=== PATIENT | male | born 1965 | race Caucasian/White ===

== ENCOUNTER 2025-04-29 18:30 | Emergency (ER) | payer OTHER, SELFPAY ==
[2025-04-29 18:50] VITALS: BP 147/91; PULSE 68; TEMP 36.6; O2SAT 99; BMI 284.6
--- NOTE | 2025-04-29 19:30 | XR_ITS ---
[facility] [place] [address] Patient Name: AMBER LUBIN MRN: [id number] date: 1965 Sex: M Assigned Patient Location: ED.MAIN Current Patient Location: ED.MAIN Accession/Order Number: [id number] Exam Date: 04/29/2025 20:07 Report Date: 04/29/2025 20:09 At the request of: LIUDMILA VARGAS Procedure: XR tibia fibula LT 2V 2 views left tibia and fibula plain film HISTORY: Left lower leg swelling COMPARISON: None ACUTE FINDINGS: None DEGENERATIVE CHANGE: Mild knee and moderate ankle degeneration. Chronic changes of the medial malleolus. SOFT TISSUE FINDINGS: Unremarkable JOINT EFFUSION: None POSTOP CHANGES: None BONE MINERALIZATION: Adequate XR/XR tibia fibula LT 2V IMPRESSION: Degenerative change. No acute findings Impression dictated by: Bryan Brambila M.D. 04/29/2025 8:09 PM Dictation Location: [facility] Electronically authenticated by: [id number] Y Date: 04/29/2025 20:09
--- NOTE | 2025-04-29 19:32 | ED_ITS ---
Documented by User: ALICIA BUSTOS II 04/30/25 12:58 HPI HPI - General Adult General Chief complaint: Extremity Problem, Nontraumatic Stated complaint: LEFT CALF VERY SWOLLEN WARM SORE Time Seen by Provider: 04/29/25 19:01 Source: patient Mode of arrival: walk-in Limitations: no limitations History of Present Illness HPI narrative: Patient has 2-day history of left leg redness and swelling medially. Patient denies any injury. Denies any fever, chills, nausea, vomiting, chest pain, shortness of breath. Denies any urinary bleeding, rectal bleeding, history of blood clot, history of DVT. Symptoms worse with touch or motion nothing improves symptoms. Onset (ago): day(s) (2 days) Location: Reports lower extremity Related Data Home Medications ?Medication ?Instructions ?Recorded ?Confirmed sertraline 20 mg/mL oral 20 mg PO DAILY 04/29/2504/08 concentrate (Zoloft) Allergies Allergy/AdvReac Type Severity Reaction Status Date / Time diclofenac (From Voltaren) Allergy Mild Hives Verified 04/29/25 18:49 Opioid HPI Opioid Management Most Recent Opioid Data: Last Pain Scale 4 04/29/25, 18:50 Review of Systems ROS Status of ROS 10 or more systems reviewed and unremark able except as noted in history and below Constitutional Denies: fever or chills Cardiovascular Reports: edema; Denies: chest pain Respiratory Denies: shortness of breath or cough Gastrointestinal Denies: abdominal pain, nausea or vomiting Genitourinary Denies: blood in urine Integumentary/Breast Reports: changes in skin color Psychiatric Denies: anxiety PFSH PFSH Social History Little interest or pleasure in doing things: not at all Feeling down, depressed, or hopeless: not at all Exam Constitutional Vital Signs, click to edit/add: Last Vital Signs Temp 97.9 F 04/29/25 18:50 Pulse 68 04/29/25 18:50 Resp 18 04/29/25 18:50 BP 147/91 H 04/29/25 18:50 Pulse Ox 99 04/29/25 18:50 O2 Del Method Room Air 04/29/25 18:50 Documenting provider has reviewed patient's vital signs: yes Common normals: no apparent distress and oriented x3 General appearance: cooperative and comfortable HENMT Common normals: normocephalic Eye Common normals: PERRL and EOMs intact bilaterally Neck & C-Spine Common normals: full ROM Chest Common normals: inspection of chest normal Respiratory Common normals: normal respiratory effort and clear to auscultation bilaterally Effort & inspection: able to speak in complete sentences Cardio Common normals: regular rate, regular rhythm, S1 normal heart sound and S2 normal heart sound GI Common normals: Normal to inspection, nondistended, normoactive bowel sounds present and non-tender Common normals: no CVA tenderness Back & Pelvis Common normals: no CVA tenderness and no thoracic nor lumbar tenderness Extremity Common normals: calf tenderness and pedal edema General: edema; no cyanosis and pulses normal Left lower extremity: lower leg (Erythema/tenderness. Patient has +1 edema noted.) Neuro Common normals: oriented x3 Course Vital Signs Vital signs: Vital Signs Temperature 97.9 F 04/29/25 18:50 Pulse Rate 68 04/29/25 18:50 Respiratory Rate 18 04/29/25 18:50 Blood Pressure 147/91 H 04/29/25 18:50 Pulse Oximetry 99 04/29/25 18:50 Oxygen Delivery Method Room Air 04/29/25 18:50 Temperature 97.9 F 04/29/25 18:50 Pulse Rate 68 04/29/25 18:50 Respiratory Rate 18 04/29/25 18:50 Blood Pressure 147/91 H 04/29/25 18:50 Pulse Oximetry 99 04/29/25 18:50 Oxygen Delivery Method Room Air 04/29/25 18:50 Medical Decision Making [facility] Narrative Medical decision making narrative: Patient has 2-day history of redness and swelling with tenderness overlying the lower leg. Patient denies any history of DVT PE, blood clotting denies any recent surgery denies any recent travel denies prednisone use. He does have elevated PSA. He also takes Imitrex. Will add CBC CMP lactic acid x-ray tib- fib as well as ultrasound venous lower extremities he has +1 anterior tibial and +2 posterior tibial left leg pulses . +1 and +1 right lower extremity. Awaiting radiology report for ultrasound discussed with Dr. Mendoza will sign outpatient to her for continued care and appropriate disposition per Differential Diagnosis Differential Diagnosis: dvt, cellulitis, phlebitis. Lab Data Lab results reviewed: Yes I reviewed the patient's lab results Labs: Lab Results 04/29/25 Range/Units 19:42 WBC 7.8 (4.0-11.0) 10^3/uL RBC 4.78 (4.70-6.10) 10^6/uL Hgb 15.5 (14.0-18.0) g/dL Hct 43.4 (42.0-54.0) % MCV 90.8 (80.0-94.0) fL MCH 32.4 (25.9-34.0) pg MCHC 35.7 H (29.9-35.2) g/dL RDW 12.8 (11.0-15.0) % Plt Count 174 (150-450) 10^3/uL MPV 11.4 (9.5-13.5) fL Neut % (Auto) 45.8 (43.0-75.0) % Lymph % (Auto) 38.0 (20.5-60.0) % [place] % (Auto) 12.2 H (1.7-12.0) % Eos % (Auto) 2.7 (0.9-7.0) % Baso % (Auto) 1.0 (0.2-2.0) % Neut # (Auto) 3.6 (1.4-6.5) 10^3/uL Lymph # (Auto) 3.0 (1.2-3.8) 10^3/uL [place] # (Auto) 1.0 H (0.3-0.8) 10^3/uL Eos # (Auto) 0.2 (0.0-0.7) 10^3/uL Baso # (Auto) 0.1 (0.0-0.1) 10^3/uL Abs Immat Gran (auto) 0.02 (0.00-0.03) 10^3/uL Imm/Tot Granulo (auto) 0.3 (0.0-0.5) % Sodium 140 (136-145) mmol/L Potassium 4.0 (3.5-5.1) mmol/L Chloride 102 (98-107) mmol/L Carbon Dioxide 29.1 (21.0-32.0) mmol/L Anion Gap 12.9 BUN 25.0 H (7.0-18.0) mg/dL Creatinine 0.97 (0.70-1.30) mg/dL Est GFR ( Amer) >60 (>=60 mL/min/1.73m^2) Est GFR (Non-Af Amer) >60 (>=60 mL/min/1.73m^2) BUN/Creatinine Ratio 25.8 Glucose 107 H (74-106) mg/dL Lactate 0.9 (0.4-2.0) mmol/L Calcium 9.1 (8.5-10.1) mg/dL Total Bilirubin 0.4 (0.2-1.0) mg/dL AST 29 (15-37) U/L ALT 51 (16-63) U/L Alkaline Phosphatase 72 (46-116) U/L Total Protein 6.8 (6.4-8.2) g/dL Albumin 4.0 (3.4-5.0) g/dL Globulin 2.8 g/dL Albumin/Globulin Ratio 1.4 Discharge Plan Discharge Chief Complaint: Extremity Problem, Nontraumatic Clinical Impression: Acute leg pain, Superficial thrombophlebitis of great saphenous vein Patient Disposition: Home, Self-Care Time of Disposition Decision: 22:47 Condition: Good Prescriptions / Home Meds: No Action sertraline [Zoloft] 20 mg/mL concentrate 20 mg PO DAILY Print Language: [place] Leonean Instructions: Superficial Thrombophlebitis (ED), Blood Thinners (ED) Referrals: Leila Edward NP [Primary Care Provider] - 1 week Discharge Date/Time: 04/29/25 23:05 Documented by User: Angela Mendoza MD 04/29/25 23:01 HPI HPI - General Adult General Chief complaint: Extremity Problem, Nontraumatic Stated complaint: LEFT CALF VERY SWOLLEN WARM SORE Time Seen by Provider: 04/29/25 19:01 Related Data Home Medications ?Medication ?Instructions ?Recorded ?Confirmed sertraline 20 mg/mL oral 20 mg PO DAILY 04/29/2504/08 concentrate (Zoloft) Allergies Allergy/AdvReac Type Severity Reaction Status Date / Time diclofenac (From Voltaren) Allergy Mild Hives Verified 04/29/25 18:49 Opioid HPI Opioid Management Most Recent Opioid Data: Last Pain Scale 4 04/29/25, 18:50 PFSH PFSH Social History Little interest or pleasure in doing things: not at all Feeling down, depressed, or hopeless: not at all Exam Constitutional Vital Signs, click to edit/add: Last Vital Signs Temp 97.9 F 04/29/25 18:50 Pulse 68 04/29/25 18:50 Resp 18 04/29/25 18:50 BP 147/91 H 04/29/25 18:50 Pulse Ox 99 04/29/25 18:50 O2 Del Method Room Air 04/29/25 18:50 Course Vital Signs Vital signs: Vital Signs Temperature 97.9 F 04/29/25 18:50 Pulse Rate 68 04/29/25 18:50 Respiratory Rate 18 04/29/25 18:50 Blood Pressure 147/91 H 04/29/25 18:50 Pulse Oximetry 99 04/29/25 18:50 Oxygen Delivery Method Room Air 04/29/25 18:50 Temperature 97.9 F 04/29/25 18:50 Pulse Rate 68 04/29/25 18:50 Respiratory Rate 18 04/29/25 18:50 Blood Pressure 147/91 H 04/29/25 18:50 Pulse Oximetry 99 04/29/25 18:50 Oxygen Delivery Method Room Air 04/29/25 18:50 Medical Decision Making [facility] Narrative Medical decision making narrative: Patient has 2-day history of redness and swelling with tenderness overlying the lower leg. Patient denies any history of DVT PE, blood clotting denies any recent surgery denies any recent travel denies prednisone use. He does have elevated PSA. He also takes Imitrex. Will add CBC CMP lactic acid x-ray tib- fib as well as ultrasound venous lower extremities he has +1 anterior tibial and +2 posterior tibial left leg pulses . +1 and +1 right lower extremity. Awaiting radiology report for ultrasound discussed with Dr. Mendoza will sign outpatient to her for continued care and appropriate disposition. This patient was seen and evaluated in conjunction with the physician front office assistant. Please refer to his H&P. In brief this patient presents for evaluation of tenderness and a red streak up the medial aspect of the left leg. His pulses are normal. He does not have any calf tenderness or swelling. He has not had any fever. His labs are normal. An ultrasound was ordered of the extremity that shows normal arterial duplex ultrasound of the left lower extremity with no peripheral arterial vascular disease. It was noted there is noncompressible greater saphenous vein segments in the distal left lower extremity consistent with superficial vein thrombosis. The patient had been medicated with a dose of Eliquis and Keflex as it took an extended period of time to get the ultrasound back. Before he did leave the premises I was able to discuss the results of the ultrasound with him. I explained to him that he does not need to take Eliquis but should continue to take the Keflex use warm compresses and take a daily aspirin. He will follow-up closely with his family physician. Lab Data Labs: Lab Results 04/29/25 Range/Units 19:42 WBC 7.8 (4.0-11.0) 10^3/uL RBC 4.78 (4.70-6.10) 10^6/uL Hgb 15.5 (14.0-18.0) g/dL Hct 43.4 (42.0-54.0) % MCV 90.8 (80.0-94.0) fL MCH 32.4 (25.9-34.0) pg MCHC 35.7 H (29.9-35.2) g/dL RDW 12.8 (11.0-15.0) % Plt Count 174 (150-450) 10^3/uL MPV 11.4 (9.5-13.5) fL Neut % (Auto) 45.8 (43.0-75.0) % Lymph % (Auto) 38.0 (20.5-60.0) % [place] % (Auto) 12.2 H (1.7-12.0) % Eos % (Auto) 2.7 (0.9-7.0) % Baso % (Auto) 1.0 (0.2-2.0) % Neut # (Auto) 3.6 (1.4-6.5) 10^3/uL Lymph # (Auto) 3.0 (1.2-3.8) 10^3/uL [place] # (Auto) 1.0 H (0.3-0.8) 10^3/uL Eos # (Auto) 0.2 (0.0-0.7) 10^3/uL Baso # (Auto) 0.1 (0.0-0.1) 10^3/uL Abs Immat Gran (auto) 0.02 (0.00-0.03) 10^3/uL Imm/Tot Granulo (auto) 0.3 (0.0-0.5) % Sodium 140 (136-145) mmol/L Potassium 4.0 (3.5-5.1) mmol/L Chloride 102 (98-107) mmol/L Carbon Dioxide 29.1 (21.0-32.0) mmol/L Anion Gap 12.9 BUN 25.0 H (7.0-18.0) mg/dL Creatinine 0.97 (0.70-1.30) mg/dL Est GFR ( Amer) >60 (>=60 mL/min/1.73m^2) Est GFR (Non-Af Amer) >60 (>=60 mL/min/1.73m^2) BUN/Creatinine Ratio 25.8 Glucose 107 H (74-106) mg/dL Lactate 0.9 (0.4-2.0) mmol/L Calcium 9.1 (8.5-10.1) mg/dL Total Bilirubin 0.4 (0.2-1.0) mg/dL AST 29 (15-37) U/L ALT 51 (16-63) U/L Alkaline Phosphatase 72 (46-116) U/L Total Protein 6.8 (6.4-8.2) g/dL Albumin 4.0 (3.4-5.0) g/dL Globulin 2.8 g/dL Albumin/Globulin Ratio 1.4 Discharge Plan Discharge Chief Complaint: Extremity Problem, Nontraumatic Clinical Impression: Acute leg pain, Superficial thrombophlebitis of great saphenous vein Patient Disposition: Home, Self-Care Time of Disposition Decision: 22:47 Condition: Good Prescriptions / Home Meds: No Action sertraline [Zoloft] 20 mg/mL concentrate 20 mg PO DAILY Print Language: [place]an Instructions: Superficial Thrombophlebitis (ED), Blood Thinners (ED) Referrals: Leila Edward NP [Primary Care Provider] - 1 week Discharge Date/Time: 04/29/25 23:05
[2025-04-29 19:47] LABS: Hematocrit 43.4 % (42.0-54.0); Hemoglobin 15.5 g/dL (14.0-18.0); Immature Granulocytes Abs Auto 0.02 10^3/uL (0.00-0.03); Immature Granulocytes Pct Auto 0.3 % (0.0-0.5); Lymphocytes Absolute Auto 3.0 10^3/uL (1.2-3.8); Mean Corpuscular HGB Conc 35.7 g/dL (29.9-35.2); Mean Corpuscular Hemoglobin 32.4 pg (25.9-34.0); Mean Corpuscular Volume 90.8 fL (80.0-94.0); Platelet Count 174 10^3/uL (150-450); Red Blood Count 4.78 10^6/uL (4.70-6.10); White Blood Count 7.8 10^3/uL (4.0-11.0)
[2025-04-29 20:06] LABS: Alanine Aminotransferase 51 U/L (16-63); Albumin Globulin Ratio 1.4; Albumin Level 4.0 g/dL (3.4-5.0); Alkaline Phosphatase 72 U/L (46-116); Anion Gap 12.9; Aspartate Amino Transferase 29 U/L (15-37); Blood Urea Nitrogen 25.0 mg/dL (7.0-18.0); Calcium 9.1 mg/dL (8.5-10.1); Carbon Dioxide 29.1 mmol/L (21.0-32.0); Chloride 102 mmol/L (98-107); Estimated GFR (African America >60 (>=60 mL/min/1.73m^2); Estimated GFR (Non-African Ame >60 (>=60 mL/min/1.73m^2); Globulin 2.8 g/dL; Glucose 107 mg/dL (74-106); Potassium 4.0 mmol/L (3.5-5.1); Sodium 140 mmol/L (136-145); Total Protein 6.8 g/dL (6.4-8.2)
[2025-04-29 20:09] LABS: Lactate/Lactic Acid 0.9 mmol/L (0.4-2.0)
[2025-04-29] MEDS: APIXABAN 5 MG TABLET 10 MG PO (22:51)
[2025-04-29] MEDS: CEPHALEXIN 500 MG CAPSULE PO (22:51)
== END 2025-04-29 23:05 | disposition home or self-care (01) ==
PROVIDERS: Physician Assistant; Emergency Provider Emergency Medicine; PCP Nurse Practitioner Family
DX: I80.02 Phlebitis and thrombophlebitis of superficial vessels of left lower extremity (principal); M79.605 Pain in left leg
CPT/HCPCS: 36415; 73590; 80053; 83605; 85025; 93926; 99285

== ENCOUNTER 2025-05-09 16:36 | Emergency (ER) | payer OTHER, SELFPAY ==
[2025-05-09 16:58] VITALS: BP 142/74; PULSE 69; TEMP 36.8; O2SAT 97; BMI 28.5
--- NOTE | 2025-05-09 17:18 | CT_ITS ---
[address] [address] Patient Name: AMBER LUBIN MRN: [id number] date: 1965 Sex: M Assigned Patient Location: ED.MAIN Current Patient Location: ED.MAIN Accession/Order Number: [id number] Exam Date: 05/09/2025 18:27 Report Date: 05/09/2025 18:32 At the request of: LIAM VARGAS Procedure: CT abdomen pelvis wo con CT abdomen pelvis wo con 05/09/2025 6:03 PM SIGNS AND SYMPTOMS: Left low back pain, left flank pain TECHNIQUE: Multidetector ct axial images of the abdomen and pelvis were obtained without IV contrast. Multiplanar reformats were performed and reviewed to further define anatomy and possible pathology. CT was performed with one or more of the following dose reduction techniques: Automated exposure control, adjustment of the mA and/or kV according to patient size, or use of iterative reconstruction technique. COMPARISON: None. FINDINGS: Lower Chest: Within normal limits. ABDOMEN: Liver: Within normal limits. Bile Ducts: Normal caliber. Gallbladder: No calcified gallstones. Normal caliber wall. Pancreas: Within normal limits. Spleen: Within normal limits. Adrenals: Within normal limits. Kidneys: There are nonobstructing renal stones on the right measuring up to 2 mm in greatest dimension. There is mild left-sided hydronephrosis with fat stranding along the left renal pelvis. Pelvis: Reproductive Organs: No pelvic masses. Ureters: There is a 4 mm stone in the left ureterovesical junction with left-sided hydroureter. Bladder: Within normal limits. Bowel: Normal caliber. There is a normal appendix in the right lower quadrant. Mesenteric Lymph Nodes: No enlarged mesenteric lymph nodes. Peritoneum: No ascites or free air, no fluid collection. Vessels: within normal limits Retroperitoneum: Within normal limits. Abdominal Wall: Within normal limits. Bones: Degenerative changes are noted in the lumbar spine. CT/CT abdomen pelvis wo con IMPRESSION: There is a 4 mm stone in the left ureterovesical junction with left-sided hydroureter. There is mild left hydronephrosis. Additional nonobstructing renal stones are noted on the right measuring up to 2 mm in greatest dimension. Impression dictated by: Conrad Matson M.D. 05/09/2025 6:32 PM Dictation Location: [place] [address] Electronically authenticated by: [id number] Y Date: 05/09/2025 18:32
--- NOTE | 2025-05-09 17:20 | ED.GENADUL1 ---
HPI HPI - General Adult General Chief complaint: Abdominal Pain Stated complaint: LOWER LEFT BACK PAIN Time Seen by Provider: 05/09/25 17:13 Source: patient Mode of arrival: walk-in Limitations: no limitations History of Present Illness HPI narrative: Patient is a 60-year-old male who presents to the emergency department for evaluation of left low back pain that began several hours ago while he was golfing. He denies any pain radiation to the abdomen. He states he had a kidney stone years ago and states this feels similar. He has not had any fevers or vomiting. He states he has the sensation that he needs to urinate but feels he can only pass a small amount of urine. No dysuria or hematuria. He did not require surgery for the previous kidney stone. Related Data Home Medications ?Medication ?Instructions ?Recorded ?Confirmed sertraline 20 mg/mL oral 20 mg PO DAILY 04/29/25 04/29/25 concentrate (Zoloft) cephalexin 500 mg capsule 500 mg PO Q8H 05/09/25 05/09/25 prednisone 20 mg tablet 40 mg PO QDAY 05/09/25 05/09/25 sumatriptan succinate 100 mg tablet 100 mg PO Q2H PRN migraine headache 05/09/25 05/09/25 Previous Rx's ?Medication ?Instructions ?Recorded ciprofloxacin HCl 500 mg tablet 500 mg PO BID 3 days #6 tabs 05/09/25 (Cipro) ondansetron 4 mg disintegrating 4 mg PO Q6H PRN nausea and 05/09/25 tablet vomiting #12 tabs oxycodone-acetaminophen 5 mg-325 1 tab PO Q6H PRN pain 3 days #12 05/09/25 mg tablet (Percocet) tabs tamsulosin 0.4 mg capsule (Flomax) 0.4 mg PO DAILY #7 caps 05/09/25 Allergies Allergy/AdvReac Type Severity Reaction Status Date / Time diclofenac (From Voltaren) Allergy Mild Hives Verified 05/09/25 16:56 Opioid HPI Opioid Management Most Recent Opioid Data: Last Pain Scale 4 Today, 16:58 Last MAR Pain Assessment Today, 17:49 Review of Systems ROS Constitutional Denies: fever or chills Cardiovascular Denies: chest pain Respiratory Denies: shortness of breath Gastrointestinal Denies: abdominal pain, nausea or vomiting Genitourinary Reports: urinary urgency and difficulty urinating Musculoskeletal Reports: back pain Integumentary/Breast Denies: rash Neurological Denies: numbness in extremities or weakness in extremities Hematologic/Lymphatic Denies: easy bruising or easy bleeding PFSH [facility] Social History Little interest or pleasure in doing things: not at all Feeling down, depressed, or hopeless: not at all Exam Narrative Exam Narrative: Gen.: Awake, alert, in no distress Head: Normocephalic, atraumatic ENT: Moist mucous membranes Respiratory: No respiratory distress Gastrointestinal: Abdomen is soft, nondistended and nontender to palpation, no CVA tenderness Extremities: Moves extremities equally Psych: Normal mood and affect Neuro: No focal neuro deficit Skin: Warm, dry, intact Constitutional Vital Signs, click to edit/add: Last Vital Signs Temp 98.2 F 05/09/25 16:58 Pulse 69 05/09/25 16:58 Resp 16 05/09/25 16:58 BP 142/74 H 05/09/25 16:58 Pulse Ox 97 05/09/25 16:58 O2 Del Method Room Air 05/09/25 16:58 Course Vital Signs Vital signs: Vital Signs Temperature 98.2 F 05/09/25 16:58 Pulse Rate 69 05/09/25 16:58 Respiratory Rate 16 05/09/25 16:58 Blood Pressure 142/74 H 05/09/25 16:58 Pulse Oximetry 97 05/09/25 16:58 Oxygen Delivery Method Room Air 05/09/25 16:58 Temperature 98.2 F 05/09/25 16:58 Pulse Rate 69 05/09/25 16:58 Respiratory Rate 16 05/09/25 16:58 Blood Pressure 142/74 H 05/09/25 16:58 Pulse Oximetry 97 05/09/25 16:58 Oxygen Delivery Method Room Air 05/09/25 16:58 Medical Decision Making MDM Narrative Medical decision making narrative: Patient treated with IV fluids, pain is controlled and vitals are stable. Labs are unremarkable. Urine specimen with blood but no infection. CT of the abdomen and pelvis shows a 4 mm stone at the left UVJ with mild hydronephrosis. Patient started on Percocet, Zofran, Flomax, Cipro. Follow-up PCP and return to the emergency department if symptoms change or worsen. Medical Records Medical records reviewed: Yes I reviewed the patient's medical records Lab Data Lab results reviewed: Yes I reviewed the patient's lab results Labs: Lab Results 05/09/25 05/09/25 Range/Units 17:08 17:32 WBC 8.5 (4.0-11.0) 10^3/uL RBC 4.44 L (4.70-6.10) 10^6/uL Hgb 14.4 (14.0-18.0) g/dL Hct 40.5 L (42.0-54.0) % MCV 91.2 (80.0-94.0) fL MCH 32.4 (25.9-34.0) pg MCHC 35.6 H (29.9-35.2) g/dL RDW 13.1 (11.0-15.0) % Plt Count 175 (150-450) 10^3/uL MPV 11.4 (9.5-13.5) fL Neut % (Auto) 56.8 (43.0-75.0) % Lymph % (Auto) 29.0 (20.5-60.0) % [place] % (Auto) 10.7 (1.7-12.0) % Eos % (Auto) 2.6 (0.9-7.0) % Baso % (Auto) 0.7 (0.2-2.0) % Neut # (Auto) 4.8 (1.4-6.5) 10^3/uL Lymph # (Auto) 2.5 (1.2-3.8) 10^3/uL [place] # (Auto) 0.9 H (0.3-0.8) 10^3/uL Eos # (Auto) 0.2 (0.0-0.7) 10^3/uL Baso # (Auto) 0.1 (0.0-0.1) 10^3/uL Abs Immat Gran (auto) 0.02 (0.00-0.03) 10^3/uL Imm/Tot Granulo (auto) 0.2 (0.0-0.5) % Sodium 142 (136-145) mmol/L Potassium 3.8 (3.5-5.1) mmol/L Chloride 106 (98-107) mmol/L Carbon Dioxide 27.2 (21.0-32.0) mmol/L Anion Gap 12.6 BUN 26.0 H (7.0-18.0) mg/dL Creatinine 1.02 (0.70-1.30) mg/dL Est GFR ( Amer) >60 (>=60 mL/min/1.73m^2) Est GFR (Non-Af Amer) >60 (>=60 mL/min/1.73m^2) BUN/Creatinine Ratio 25.5 Glucose 106 (74-106) mg/dL Lactate 1.6 (0.4-2.0) mmol/L Calcium 9.1 (8.5-10.1) mg/dL Total Bilirubin 0.4 (0.2-1.0) mg/dL AST 16 (15-37) U/L ALT 27 (16-63) U/L Alkaline Phosphatase 76 (46-116) U/L Total Protein 6.7 (6.4-8.2) g/dL Albumin 3.9 (3.4-5.0) g/dL Globulin 2.8 g/dL Albumin/Globulin Ratio 1.4 Urine Color Yellow (YELLOW) Urine Clarity Clear (CLEAR) Urine pH 6.0 (5.0-9.0) Ur Specific [place] 1.025 (1.005-1.025) Urine Protein Negative (NEG/TRACE) mg/dL Urine Glucose (UA) Negative (NEGATIVE) mg/dL Urine Ketones Negative (NEGATIVE) mg/dL Urine Occult Blood Moderate A (NEGATIVE) Urine Nitrite Negative (NEGATIVE) Urine Bilirubin Negative (NEGATIVE) Urine Urobilinogen 0.2 (0.2-1.0) EU/dL Ur Leukocyte Esterase Negative (NEGATIVE) Urine RBC 10-20 A (0-2) #/HPF Urine WBC 0-2 A (NONE SEEN) #/HPF Ur Squamous Epith Cells Rare (NONE/RARE) #/LPF Urine Crystals None seen (None Seen) #/HPF Urine Bacteria Trace A (NONE SEEN) #/HPF Urine Casts None seen (NONE SEEN) #/LPF Urine Mucus Small A (NONE SEEN) Ur Culture Indicated? No Imaging Data CT scan - abdomen: Attestation: I have reviewed the pertinent imaging results. Radiologist's impression: ITS Impressions Abdomen/Pelvis CT 05/09/25 17:18 IMPRESSION: There is a 4 mm stone in the left ureterovesical junction with left-sided hydroureter. There is mild left hydronephrosis. Additional nonobstructing renal stones are noted on the right measuring up to 2 mm in greatest dimension. Impression dictated by: Conrad Matson M.D. 05/09/2025 6:32 PM Dictation Location: [place] [address] Electronically authenticated by: [id number] Y Date: 05/09/2025 18:32 Discharge Plan Discharge Chief Complaint: Abdominal Pain Clinical Impression: Ureterolithiasis, Acute left flank pain Patient Disposition: Home, Self-Care Time of Disposition Decision: 18:39 Condition: Good Prescriptions / Home Meds: New ciprofloxacin HCl [Cipro] 500 mg tablet 500 mg PO BID 3 Days Qty: 6 0RF oxycodone-acetaminophen [Percocet] 5-325 mg tablet 1 tab PO Q6H PRN (Reason: pain) 3 Days Qty: 12 0RF Rx Instructions: DX: N20.0 tamsulosin [Flomax] 0.4 mg capsule 0.4 mg PO DAILY Qty: 7 0RF ondansetron 4 mg tablet,disintegrating 4 mg PO Q6H PRN (Reason: nausea and vomiting) Qty: 12 0RF No Action sertraline [Zoloft] 20 mg/mL concentrate 20 mg PO DAILY sumatriptan succinate 100 mg tablet 100 mg PO Q2H PRN (Reason: migraine headache) cephalexin 500 mg capsule 500 mg PO Q8H Rx Instructions: Started on05/01/25 prednisone 20 mg tablet 40 mg PO QDAY Rx Instructions: 05/07/2025 Print Language: Cam[place]onian Instructions: Ureteral Stones (ED) Referrals: Leila Edward NP [Primary Care Provider] - 1 week
[2025-05-09 17:21] LABS: Glucose Urine UA NEGATIVE (NEGATIVE)
[2025-05-09 17:32] LABS: Cast Seen? NONE SEEN #/LPF (NONE SEEN); Crystals Seen? None Seen #/HPF (None Seen)
[2025-05-09 17:33] LABS: Urine Culture Indicated NO
[2025-05-09 17:38] LABS: Hematocrit 40.5 % (42.0-54.0); Hemoglobin 14.4 g/dL (14.0-18.0); Immature Granulocytes Abs Auto 0.02 10^3/uL (0.00-0.03); Immature Granulocytes Pct Auto 0.2 % (0.0-0.5); Lymphocytes Absolute Auto 2.5 10^3/uL (1.2-3.8); Mean Corpuscular HGB Conc 35.6 g/dL (29.9-35.2); Mean Corpuscular Hemoglobin 32.4 pg (25.9-34.0); Mean Corpuscular Volume 91.2 fL (80.0-94.0); Platelet Count 175 10^3/uL (150-450); Red Blood Count 4.44 10^6/uL (4.70-6.10); White Blood Count 8.5 10^3/uL (4.0-11.0)
[2025-05-09] MEDS: HYDROMORPHONE HCL 0.5 MG/0.5 ML SYRINGE IV (17:49)
[2025-05-09] MEDS: 0.9 % SODIUM CHLORIDE 1,000 ML 1000 ML IV (17:49)
[2025-05-09 17:56] LABS: Alanine Aminotransferase 27 U/L (16-63); Albumin Globulin Ratio 1.4; Albumin Level 3.9 g/dL (3.4-5.0); Alkaline Phosphatase 76 U/L (46-116); Anion Gap 12.6; Aspartate Amino Transferase 16 U/L (15-37); Blood Urea Nitrogen 26.0 mg/dL (7.0-18.0); Calcium 9.1 mg/dL (8.5-10.1); Carbon Dioxide 27.2 mmol/L (21.0-32.0); Chloride 106 mmol/L (98-107); Estimated GFR (African America >60 (>=60 mL/min/1.73m^2); Estimated GFR (Non-African Ame >60 (>=60 mL/min/1.73m^2); Globulin 2.8 g/dL; Glucose 106 mg/dL (74-106); Potassium 3.8 mmol/L (3.5-5.1); Sodium 142 mmol/L (136-145); Total Protein 6.7 g/dL (6.4-8.2)
[2025-05-09 17:59] LABS: Lactate/Lactic Acid 1.6 mmol/L (0.4-2.0)
[2025-05-09] MEDS: CIPROFLOXACIN HCL 500 MG TABLET PO (18:50)
[2025-05-09] MEDS: TAMSULOSIN HCL 0.4 MG CAPSULE PO (18:50)
== END 2025-05-09 18:57 | disposition home or self-care (01) ==
PROVIDERS: Physician Assistant; Emergency Provider Emergency Medicine; PCP Nurse Practitioner Family
DX: N13.2 Hydronephrosis with renal and ureteral calculous obstruction (principal); Z87.442 Personal history of urinary calculi; R10.9 Unspecified abdominal pain
CPT/HCPCS: 36415; 74176; 80053; 81001; 83605; 85025; 96374; 96375; 99285; J1171; J2405